=== PATIENT | female | born 1985 | race Caucasian/White ===

== ENCOUNTER 2017-10-19 05:50 | Day surgery (SDC) | payer OTHER ==
--- NOTE | 2017-10-19 07:24 | HP ---
Admitting History and Physical - Primary Care Physician PCP: Juancarlos Kat (Dr Toussaint (psychiatrist)) - Admission Chief Complaint: depression/anxiety History of Present Illness: patient is a 32 y/o obese female with a past medical history of depression and anxiety. Patient presents for ect. This will be her first ECT. She reports being first diagnosed with depression ten years ago after the of her first child. Patient has tried several medications no significant relief. She was referred for ect. patient denies any suicidal or homicidal ideation, visual or auditory hallucinations. History Source: Patient Limitations to Obtaining History: No Limitations - Smoking History Smoking history: Never smoked - Alcohol/Substance Use Hx Alcohol Use: No History of Substance Use: reports: None - Social History Usual Living Arrangement: Yes: With Spouse ADL: Independent History of Recent Travel: No Home Medications - Allergies Allergies/Adverse Reactions: Allergies Allergy/AdvReac Type Severity Reaction Status Date / Time adhesive Allergy Severe Rash Verified 10/19/17 07:21 - Home Medications Home Medications: Ambulatory Orders Brexpiprazole [Rexulti] 1 mg PO DAILY 10/19/17 Bupropion HCl [Bupropion HCl Sr] 150 mg PO HS 10/19/17 Bupropion HCl [Forfivo Xl] 300 mg PO DAILY 10/19/17 Clonazepam [Klonopin] 1 mg PO DAILY 10/19/17 Vortioxetine Hydrobromide [Trintellix] 40 mg PO DAILY 10/19/17 Family Disease History - Family Disease History Family Disease History: Other: Grandparent (mother depression) Review of Systems - Review of Systems Constitutional: reports: No Symptoms Eyes: reports: No Symptoms HENT: reports: No Symptoms Neck: reports: No Symptoms Cardiovascular: reports: No Symptoms Respiratory: reports: No Symptoms Gastrointestinal: reports: No Symptoms Genitourinary: reports: No Symptoms Musculoskeletal: reports: No Symptoms Integumentary: reports: No Symptoms Neurological: reports: No Symptoms Endocrine: reports: No Symptoms Hematology/Lymphatic: reports: No Symptoms Psychiatric: reports: Anxiety, Depression Physical Examination Constitutional: Yes: Well Nourished, No Distress, Calm Eyes: Yes: WNL, Conjunctiva Clear, EOM Intact HENT: Yes: WNL, Atraumatic, Normocephalic Neck: Yes: WNL, Supple, Trachea Midline Cardiovascular: Yes: WNL, Regular Rate and Rhythm, S1, S2 Respiratory: Yes: WNL, Regular, CTA Bilaterally Gastrointestinal: Yes: WNL, Normal Bowel Sounds, Soft ...Rectal Exam: Yes: Deferred Renal/: Yes: WNL Musculoskeletal: Yes: WNL Extremities: Yes: WNL Edema: No Peripheral Pulses WNL: Yes Peripheral Pulses: Left Radial: 4+, Right Radial: 4+, Left Doralis Pedis: 3+, Right Dorsalis Pedis: 3+, Left Femoral: 3+, Right Femoral: 3+ Integumentary: Yes: WNL Neurological: Yes: WNL, Alert, Oriented ...Motor Strength: WNL Psychiatric: Yes: WNL, Alert Labs: reviewe 10/15/17 Imaging - Results EKG: Image Reviewed, Other (nsr no ischemic changes) Assessment/Plan patient is a 32 y/o female that presents for ect, labs and ekg reviewed patient is medically optimized for procedure informed consent, risks/benefits to be obtained by Dr Fitch
[2017-10-19 07:31] VITALS: TEMP 98.2; BMI 36.0
[2017-10-19] MEDS ORDERED: KETAMINE HCL 500 MG/10 ML VIAL ONE (08:02)
[2017-10-19 12:11] VITALS: BP 128/84; PULSE 104
--- NOTE | 2017-10-19 15:49 | EKG ---
Test Reason : Blood Pressure : / mmHG Vent. Rate : 094 BPM Atrial Rate : 094 BPM P-R Int : 154 ms QRS Dur : 080 ms QT Int : 376 ms P-R-T Axes : 025 -10 018 degrees QTc Int : 470 ms NORMAL SINUS RHYTHM NORMAL ECG NO PREVIOUS ECGS AVAILABLE Confirmed by ANYI GOMEZ MD ([id number]) on 10/19/2017 3:49:09 PM Referred By: DR GRECO Confirmed By:ANYI GOMEZ MD
== END 2017-10-19 10:00 | disposition home or self-care (01) ==
LOC: FECT 05:50
PROVIDERS: ATTEND Psychiatry & Neurology Psychiatry
PROC: GZB4ZZZ Other Electroconvulsive Therapy (ICD-10-PCS; principal; 2017-10-19 07:45)
DX: F33.2 Major depressive disorder, recurrent severe without psychotic features (principal)
CPT/HCPCS: 84703; 90870; 93005; 94760

== ENCOUNTER 2017-10-21 05:44 | Day surgery (SDC) | payer OTHER ==
[2017-10-19 12:40] VITALS: BMI 36.0
[2017-10-21] MEDS ORDERED: KETAMINE HCL 500 MG/10 ML VIAL ONE (07:00)
[2017-10-21 07:59] VITALS: TEMP 97.8
[2017-10-21 08:41] VITALS: BP 124/88; PULSE 104
== END 2017-10-21 08:52 | disposition home or self-care (01) ==
LOC: FECT 05:44
PROVIDERS: ATTEND Psychiatry & Neurology Psychiatry
PROC: GZB4ZZZ Other Electroconvulsive Therapy (ICD-10-PCS; principal; 2017-10-21 07:30)
DX: F33.2 Major depressive disorder, recurrent severe without psychotic features (principal)
CPT/HCPCS: 90870; 94760

== ENCOUNTER 2017-10-23 05:49 | Day surgery (SDC) | payer OTHER ==
[2017-10-19 17:09] VITALS: BMI 36.0
[2017-10-23 07:43] VITALS: TEMP 97.8
[2017-10-23] MEDS ORDERED: KETAMINE HCL 500 MG/10 ML VIAL ONE (08:34)
[2017-10-23 09:45] VITALS: BP 132/87; PULSE 92
== END 2017-10-23 09:50 | disposition home or self-care (01) ==
LOC: FECT 05:49
PROVIDERS: ATTEND Psychiatry & Neurology Psychiatry
PROC: GZB4ZZZ Other Electroconvulsive Therapy (ICD-10-PCS; principal; 2017-10-23 08:30)
DX: F33.2 Major depressive disorder, recurrent severe without psychotic features (principal)
CPT/HCPCS: 84703; 90870; 94760

== ENCOUNTER 2017-10-26 05:47 | Day surgery (SDC) | payer OTHER ==
[2017-10-19 17:13] VITALS: BMI 36.0
[2017-10-26] MEDS ORDERED: KETAMINE HCL 500 MG/10 ML VIAL ONE (07:32)
[2017-10-26 08:38] VITALS: TEMP 98.9
[2017-10-26 09:08] VITALS: BP 126/82; PULSE 102
== END 2017-10-26 09:10 | disposition home or self-care (01) ==
LOC: FECT 05:47
PROVIDERS: ATTEND Psychiatry & Neurology Psychiatry
PROC: GZB4ZZZ Other Electroconvulsive Therapy (ICD-10-PCS; principal; 2017-10-26 07:30)
DX: F33.2 Major depressive disorder, recurrent severe without psychotic features (principal)
CPT/HCPCS: 90870; 94760

== ENCOUNTER → 2017-10-28 | Day surgery (SDC) | payer OTHER ==
[2017-10-19 17:15] VITALS: BMI 36.0
[~2017-10-28] MED LIST: ACETAMINOPHEN 325 MG TABLET (FP) PO PRN; KETAMINE HCL 500 MG/10 ML VIAL ONE
[2017-10-28 09:20] VITALS: TEMP 98.5
[2017-10-28 09:40] VITALS: BP 131/81; PULSE 87
== END | disposition home or self-care (01) ==
LOC: FECT 05:42
PROVIDERS: ATTEND Psychiatry & Neurology Psychiatry
PROC: GZB4ZZZ Other Electroconvulsive Therapy (ICD-10-PCS; principal; 2017-10-28 07:30)
DX: F33.2 Major depressive disorder, recurrent severe without psychotic features (principal)
CPT/HCPCS: 84703; 90870; 94760

== ENCOUNTER 2017-11-02 05:43 | Day surgery (SDC) | payer OTHER ==
[2017-11-02 06:45] VITALS: TEMP 98.1; BMI 35.0
[2017-11-02] MEDS ORDERED: KETAMINE HCL 500 MG/10 ML VIAL ONE (07:10)
[2017-11-02 09:15] VITALS: BP 136/91; PULSE 98
== END 2017-11-02 09:00 | disposition home or self-care (01) ==
LOC: FECT 05:43
PROVIDERS: ATTEND Psychiatry & Neurology Psychiatry
PROC: GZB4ZZZ Other Electroconvulsive Therapy (ICD-10-PCS; principal; 2017-11-02 07:15)
DX: F33.2 Major depressive disorder, recurrent severe without psychotic features (principal)
CPT/HCPCS: 84703; 90870; 94760

== ENCOUNTER 2017-11-04 05:40 | Day surgery (SDC) | payer OTHER ==
[2017-11-04 06:24] VITALS: BMI 35.0
[2017-11-04] MEDS ORDERED: KETAMINE HCL 500 MG/10 ML VIAL ONE (07:08)
[2017-11-04] MEDS ORDERED: PROMETHAZINE HCL 25 MG/1 ML VIAL IVPUSH PRN (08:00)
[2017-11-04] MEDS ORDERED: ACETAMINOPHEN 325 MG TABLET (FP) PO PRN (08:00)
[2017-11-04] MEDS ORDERED: ONDANSETRON 4 MG/2 ML VIAL IVPUSH PRN (08:00)
[2017-11-04 08:15] VITALS: TEMP 98.2
[2017-11-04 08:45] VITALS: BP 126/72; PULSE 98
== END 2017-11-04 09:10 | disposition home or self-care (01) ==
LOC: FECT 05:40
PROVIDERS: ATTEND Psychiatry & Neurology Psychiatry
PROC: GZB4ZZZ Other Electroconvulsive Therapy (ICD-10-PCS; principal; 2017-11-04 07:00)
DX: F33.2 Major depressive disorder, recurrent severe without psychotic features (principal)
CPT/HCPCS: 90870; 94760

== ENCOUNTER 2017-11-06 05:40 | Day surgery (SDC) | payer OTHER ==
[2017-11-02 09:29] VITALS: BMI 35.0
[2017-11-06] MEDS ORDERED: KETAMINE HCL 500 MG/10 ML VIAL ONE (07:29)
[2017-11-06 08:29] VITALS: TEMP 97.8
[2017-11-06 08:53] VITALS: BP 130/84; PULSE 96
== END 2017-11-06 08:45 | disposition home or self-care (01) ==
LOC: FECT 05:40
PROVIDERS: ATTEND Psychiatry & Neurology Psychiatry
PROC: GZB4ZZZ Other Electroconvulsive Therapy (ICD-10-PCS; principal; 2017-11-06 07:00)
DX: F33.2 Major depressive disorder, recurrent severe without psychotic features (principal)
CPT/HCPCS: 84703; 90870; 94760

== ENCOUNTER 2017-11-09 05:43 | Day surgery (SDC) | payer OTHER ==
[2017-11-02 12:26] VITALS: BMI 35.0
[2017-11-09] MEDS ORDERED: KETAMINE HCL 500 MG/10 ML VIAL ONE (07:12)
[2017-11-09] MEDS ORDERED: oxyCODONE HCL 5 MG TABLET PO PRN (08:03)
[2017-11-09] MEDS ORDERED: ONDANSETRON 4 MG/2 ML VIAL IVPUSH PRN (08:03)
[2017-11-09] MEDS ORDERED: LACTATED RINGERS SOLUTION 1,000 ML IV SCH (08:15)
[2017-11-09 09:19] VITALS: BP 130/86; PULSE 92; TEMP 98.6
== END 2017-11-09 09:00 | disposition home or self-care (01) ==
LOC: FECT 05:43
PROVIDERS: ATTEND Psychiatry & Neurology Psychiatry
PROC: GZB4ZZZ Other Electroconvulsive Therapy (ICD-10-PCS; principal; 2017-11-09 07:15)
DX: F33.2 Major depressive disorder, recurrent severe without psychotic features (principal)
CPT/HCPCS: 90870; 94760

== ENCOUNTER 2017-11-11 05:38 | Day surgery (SDC) | payer OTHER ==
[2017-11-11 06:16] VITALS: BMI 35.0
[2017-11-11] MEDS ORDERED: KETAMINE HCL 500 MG/10 ML VIAL ONE (06:59)
[2017-11-11] MEDS ORDERED: oxyCODONE HCL 5 MG TABLET PO PRN (07:22)
[2017-11-11 08:11] VITALS: PULSE 92; TEMP 98.8
[2017-11-11 08:25] VITALS: BP 118/84
== END 2017-11-11 08:30 | disposition home or self-care (01) ==
LOC: FECT 05:38
PROVIDERS: ATTEND Psychiatry & Neurology Psychiatry
PROC: GZB4ZZZ Other Electroconvulsive Therapy (ICD-10-PCS; principal; 2017-11-11 07:00)
DX: F33.2 Major depressive disorder, recurrent severe without psychotic features (principal)
CPT/HCPCS: 84703; 90870; 94760

== ENCOUNTER 2017-11-13 05:39 | Day surgery (SDC) | payer OTHER ==
[2017-11-10 10:18] VITALS: BMI 35.0
[2017-11-13] MEDS ORDERED: KETAMINE HCL 500 MG/10 ML VIAL ONE (07:58)
[2017-11-13 09:13] VITALS: TEMP 99.1
[2017-11-13 10:46] VITALS: BP 134/88; PULSE 88
== END 2017-11-13 09:55 | disposition home or self-care (01) ==
LOC: FECT 05:39
PROVIDERS: ATTEND Psychiatry & Neurology Psychiatry
PROC: GZB4ZZZ Other Electroconvulsive Therapy (ICD-10-PCS; principal; 2017-11-13 07:00)
DX: F33.2 Major depressive disorder, recurrent severe without psychotic features (principal)
CPT/HCPCS: 90870; 94760

== ENCOUNTER 2017-11-16 05:47 | Day surgery (SDC) | payer OTHER ==
[2017-11-13 10:44] VITALS: BMI 35.0
[2017-11-16] MEDS ORDERED: KETAMINE HCL 500 MG/10 ML VIAL ONE (06:45)
[2017-11-16 08:08] VITALS: TEMP 98.2
[2017-11-16 09:12] VITALS: BP 116/72; PULSE 96
== END 2017-11-16 08:50 | disposition home or self-care (01) ==
LOC: FECT 05:47
PROVIDERS: ATTEND Psychiatry & Neurology Psychiatry
PROC: GZB4ZZZ Other Electroconvulsive Therapy (ICD-10-PCS; principal; 2017-11-16 07:30)
DX: F33.2 Major depressive disorder, recurrent severe without psychotic features (principal)
CPT/HCPCS: 84703; 90870; 94760

== ENCOUNTER 2017-11-18 05:42 | Day surgery (SDC) | payer OTHER ==
[2017-11-13 10:46] VITALS: BMI 35.0
[2017-11-18] MEDS ORDERED: KETAMINE HCL 500 MG/10 ML VIAL ONE (07:56)
[2017-11-18 09:15] VITALS: TEMP 98.2
[2017-11-18 10:04] VITALS: BP 122/82; PULSE 94
== END 2017-11-18 10:07 | disposition home or self-care (01) ==
LOC: FECT 05:42
PROVIDERS: ATTEND Psychiatry & Neurology Psychiatry
PROC: GZB4ZZZ Other Electroconvulsive Therapy (ICD-10-PCS; principal; 2017-11-18 07:30)
DX: F33.2 Major depressive disorder, recurrent severe without psychotic features (principal)
CPT/HCPCS: 90870; 94760

== ENCOUNTER 2017-11-20 05:41 | Day surgery (SDC) | payer OTHER ==
[2017-11-13 10:49] VITALS: BMI 35.0
--- NOTE | 2017-11-20 06:58 | HP ---
Admitting History and Physical - Admission History of Present Illness: Patient is a 32 y/o female with a past medical history of depression and anxiety. Patient presents for ect, her last ect was 11/18/17. Patient reports her depressive feeling have been much improved since starting ect. Patient denies any recent illnesses or hosptializations. She denies any changes in medications. Patient denies any suicidal or homicidal ideation, visual or auditory hallucinations. History Source: Patient Limitations to Obtaining History: No Limitations - Past Medical History ...LMP: 10/05/17 - Smoking History Smoking history: Never smoked Have you smoked in the past 12 months: No - Alcohol/Substance Use Hx Alcohol Use: No History of Substance Use: reports: None - Social History Usual Living Arrangement: Yes: With Spouse ADL: Independent History of Recent Travel: No Home Medications - Allergies Allergies/Adverse Reactions: Allergies Allergy/AdvReac Type Severity Reaction Status Date / Time adhesive Allergy Severe Rash Verified 11/03/17 17:08 - Home Medications Home Medications: Ambulatory Orders Brexpiprazole [Rexulti] 1 mg PO DAILY 10/19/17 Bupropion HCl [Bupropion HCl Sr] 150 mg PO HS 10/19/17 Bupropion HCl [Forfivo Xl] 300 mg PO DAILY 10/19/17 Clonazepam [Klonopin] 1 mg PO DAILY 10/19/17 Vortioxetine Hydrobromide [Trintellix] 40 mg PO DAILY 10/19/17 Family Disease History - Family Disease History Family Disease History: Other: Grandparent Review of Systems - Review of Systems Constitutional: reports: No Symptoms Eyes: reports: No Symptoms HENT: reports: No Symptoms Neck: reports: No Symptoms Cardiovascular: reports: No Symptoms Respiratory: reports: No Symptoms Gastrointestinal: reports: No Symptoms Genitourinary: reports: No Symptoms Musculoskeletal: reports: No Symptoms Integumentary: reports: No Symptoms Neurological: reports: No Symptoms Endocrine: reports: No Symptoms Hematology/Lymphatic: reports: No Symptoms Psychiatric: reports: No Symptoms Physical Examination Vital Signs: Vital Signs Temperature 97.8 F 11/20/17 06:21 Pulse Rate 92 H 11/20/17 06:21 Respiratory Rate 18 11/20/17 06:21 Blood Pressure 123/82 11/20/17 06:21 O2 Sat by Pulse Oximetry (%) 95 11/20/17 06:21 Constitutional: Yes: Well Nourished, No Distress, Calm Eyes: Yes: WNL, Conjunctiva Clear, EOM Intact HENT: Yes: WNL, Atraumatic, Normocephalic Neck: Yes: WNL, Supple, Trachea Midline Cardiovascular: Yes: WNL, Regular Rate and Rhythm, S1, S2 Respiratory: Yes: WNL, Regular, CTA Bilaterally Gastrointestinal: Yes: WNL, Normal Bowel Sounds, Soft ...Rectal Exam: Yes: Deferred Renal/: Yes: WNL Breast(s): Yes: WNL Musculoskeletal: Yes: WNL Extremities: Yes: WNL Edema: No Peripheral Pulses WNL: Yes Peripheral Pulses: Left Radial: 4+, Right Radial: 4+, Left Doralis Pedis: 3+, Right Dorsalis Pedis: 3+, Left Femoral: 3+, Right Femoral: 3+ Integumentary: Yes: WNL Neurological: Yes: WNL, Alert, Oriented ...Motor Strength: WNL Psychiatric: Yes: WNL, Alert, Oriented Labs: reviewed 10/13/17 Imaging - Results EKG: Image Reviewed, Other (nsr no ischemic changes) Assessment/Plan patient is a 32 y/o female that presents for ect, labs and ekg reviewed patient is medically optimized for procedure informed consent, risks/benefits to be obtained by Dr Fitch
[2017-11-20] MEDS ORDERED: KETAMINE HCL 500 MG/10 ML VIAL ONE (08:06)
[2017-11-20 09:28] VITALS: BP 125/74; PULSE 92; TEMP 98
== END 2017-11-20 09:30 | disposition home or self-care (01) ==
LOC: FECT 05:41
PROVIDERS: ATTEND Psychiatry & Neurology Psychiatry
PROC: GZB4ZZZ Other Electroconvulsive Therapy (ICD-10-PCS; principal; 2017-11-20 07:15)
DX: F33.2 Major depressive disorder, recurrent severe without psychotic features (principal)
CPT/HCPCS: 84703

== ENCOUNTER 2017-11-23 05:50 | Day surgery (SDC) | payer OTHER ==
[2017-11-18 15:05] VITALS: BMI 35.0
[2017-11-23 06:27] VITALS: TEMP 98.1
[2017-11-23] MEDS ORDERED: KETAMINE HCL 500 MG/10 ML VIAL ONE (07:00)
[2017-11-23 08:20] VITALS: BP 120/76; PULSE 84
[2017-11-23] MEDS ORDERED: oxyCODONE HCL 5 MG TABLET PO PRN (09:52)
[2017-11-23] MEDS ORDERED: ONDANSETRON 4 MG/2 ML VIAL IVPUSH PRN (09:52)
[2017-11-23] MEDS ORDERED: LACTATED RINGERS SOLUTION 1,000 ML IV SCH (10:00)
== END 2017-11-23 08:30 | disposition home or self-care (01) ==
LOC: FECT 05:50
PROVIDERS: ATTEND Psychiatry & Neurology Psychiatry
PROC: GZB4ZZZ Other Electroconvulsive Therapy (ICD-10-PCS; principal; 2017-11-23 07:45)
DX: F33.2 Major depressive disorder, recurrent severe without psychotic features (principal)
CPT/HCPCS: 90870; 94760

== ENCOUNTER 2017-11-25 05:41 | Day surgery (SDC) | payer OTHER ==
[2017-11-18 15:08] VITALS: BMI 35.0
[2017-11-25] MEDS ORDERED: KETAMINE HCL 500 MG/10 ML VIAL ONE (07:23)
[2017-11-25 08:32] VITALS: PULSE 82; TEMP 98.6
[2017-11-25 09:04] VITALS: BP 117/72
== END 2017-11-25 09:08 | disposition home or self-care (01) ==
LOC: FECT 05:41
PROVIDERS: ATTEND Psychiatry & Neurology Psychiatry
PROC: GZB4ZZZ Other Electroconvulsive Therapy (ICD-10-PCS; principal; 2017-11-25 07:00)
DX: F33.2 Major depressive disorder, recurrent severe without psychotic features (principal)
CPT/HCPCS: 84703

== ENCOUNTER 2017-11-30 05:40 | Day surgery (SDC) | payer OTHER ==
[2017-11-27 15:57] VITALS: BMI 35.0
[2017-11-30] MEDS ORDERED: KETAMINE HCL 500 MG/10 ML VIAL ONE (06:51)
[2017-11-30 07:58] VITALS: TEMP 98.2
[2017-11-30 09:01] VITALS: PULSE 84
[2017-11-30 09:08] VITALS: BP 112/68
== END 2017-11-30 09:09 | disposition home or self-care (01) ==
LOC: FECT 05:40
PROVIDERS: ATTEND Psychiatry & Neurology Psychiatry
PROC: GZB4ZZZ Other Electroconvulsive Therapy (ICD-10-PCS; principal; 2017-11-30 07:15)
DX: F33.2 Major depressive disorder, recurrent severe without psychotic features (principal)
CPT/HCPCS: 84703; 90870; 94760

== ENCOUNTER 2017-12-02 05:50 | Day surgery (SDC) | payer OTHER ==
[2017-11-27 16:01] VITALS: BMI 35.0
[2017-12-02] MEDS ORDERED: KETAMINE HCL 500 MG/10 ML VIAL ONE (07:04)
[2017-12-02 08:22] VITALS: TEMP 98
[2017-12-02 08:23] VITALS: BP 114/80; PULSE 87
== END 2017-12-02 08:26 | disposition home or self-care (01) ==
LOC: FECT 05:50
PROVIDERS: ATTEND Psychiatry & Neurology Psychiatry
PROC: GZB4ZZZ Other Electroconvulsive Therapy (ICD-10-PCS; principal; 2017-12-02 07:15)
DX: F33.2 Major depressive disorder, recurrent severe without psychotic features (principal)
CPT/HCPCS: 90870; 94760

== ENCOUNTER 2017-12-04 05:48 | Day surgery (SDC) | payer OTHER ==
[2017-12-04 06:17] VITALS: BMI 34.4
[2017-12-04] MEDS ORDERED: KETAMINE HCL 500 MG/10 ML VIAL ONE (07:09)
[2017-12-04 08:05] VITALS: TEMP 98.8
[2017-12-04] MEDS ORDERED: ONDANSETRON 4 MG/2 ML VIAL IVPUSH PRN (08:17)
[2017-12-04] MEDS ORDERED: PROMETHAZINE HCL 25 MG/1 ML VIAL IVPUSH PRN (08:17)
[2017-12-04] MEDS ORDERED: ACETAMINOPHEN 500 MG TABLET (FP) PO PRN (08:17)
[2017-12-04 08:29] VITALS: BP 124/82; PULSE 84
== END 2017-12-04 08:35 | disposition home or self-care (01) ==
LOC: FECT 05:48
PROVIDERS: ATTEND Psychiatry & Neurology Psychiatry
PROC: GZB4ZZZ Other Electroconvulsive Therapy (ICD-10-PCS; principal; 2017-12-04 08:30)
DX: F33.2 Major depressive disorder, recurrent severe without psychotic features (principal)
CPT/HCPCS: 84703; 90870; 94760

== ENCOUNTER 2017-12-07 05:46 | Day surgery (SDC) | payer OTHER ==
[2017-12-04 11:18] VITALS: BMI 34.4
[2017-12-07] MEDS ORDERED: KETAMINE HCL 500 MG/10 ML VIAL ONE (07:23)
[2017-12-07 09:06] VITALS: TEMP 99.2
[2017-12-07 09:07] VITALS: BP 120/84; PULSE 88
== END 2017-12-07 09:00 | disposition home or self-care (01) ==
LOC: FECT 05:46
PROVIDERS: ATTEND Psychiatry & Neurology Psychiatry
PROC: GZB4ZZZ Other Electroconvulsive Therapy (ICD-10-PCS; principal; 2017-12-07 08:00)
DX: F33.2 Major depressive disorder, recurrent severe without psychotic features (principal)
CPT/HCPCS: 90870; 94760

== ENCOUNTER 2017-12-11 05:36 | Day surgery (SDC) | payer OTHER ==
[2017-12-04 11:23] VITALS: BMI 34.4
[2017-12-11] MEDS ORDERED: KETAMINE HCL 500 MG/10 ML VIAL ONE (07:32)
[2017-12-11 09:07] VITALS: TEMP 97.8
[2017-12-11 09:10] VITALS: BP 130/86; PULSE 88
[2017-12-11] MEDS ORDERED: ONDANSETRON 4 MG/2 ML VIAL IVPUSH PRN (11:58)
[2017-12-11] MEDS ORDERED: LACTATED RINGERS SOLUTION 1,000 ML IV SCH (12:00)
== END 2017-12-11 09:00 | disposition home or self-care (01) ==
LOC: FECT 05:36
PROVIDERS: ATTEND Psychiatry & Neurology Psychiatry
PROC: GZB4ZZZ Other Electroconvulsive Therapy (ICD-10-PCS; principal; 2017-12-11 07:15)
DX: F33.2 Major depressive disorder, recurrent severe without psychotic features (principal)
CPT/HCPCS: 84703; 90870; 94760

== ENCOUNTER 2017-12-29 05:43 | Day surgery (SDC) | payer OTHER ==
[2017-12-29 08:11] VITALS: BMI 32.8
[2017-12-29] MEDS ORDERED: KETAMINE HCL 500 MG/10 ML VIAL ONE (08:35)
[2017-12-29] MEDS ORDERED: ACETAMINOPHEN 325 MG TABLET (FP) PO PRN (09:06)
[2017-12-29] MEDS ORDERED: PROMETHAZINE HCL 25 MG/1 ML VIAL IVPUSH PRN (09:06)
[2017-12-29 09:49] VITALS: BP 134/88; PULSE 95; TEMP 98.5
== END 2017-12-29 09:45 | disposition home or self-care (01) ==
LOC: FECT 05:43
PROVIDERS: ATTEND Psychiatry & Neurology Psychiatry
PROC: GZB4ZZZ Other Electroconvulsive Therapy (ICD-10-PCS; principal; 2017-12-29 07:15)
DX: F33.2 Major depressive disorder, recurrent severe without psychotic features (principal)
CPT/HCPCS: 84703; 90870; 94760

== ENCOUNTER 2018-01-06 05:40 | Day surgery (SDC) | payer OTHER ==
[2018-01-06 06:24] VITALS: BMI 32.2
[2018-01-06] MEDS ORDERED: KETAMINE HCL 500 MG/10 ML VIAL ONE (06:59)
[2018-01-06 07:58] VITALS: TEMP 98.2
[2018-01-06 08:21] VITALS: BP 109/76; PULSE 81
== END 2018-01-06 08:34 | disposition home or self-care (01) ==
LOC: FECT 05:40
PROVIDERS: ATTEND Psychiatry & Neurology Psychiatry
PROC: GZB4ZZZ Other Electroconvulsive Therapy (ICD-10-PCS; principal; 2018-01-06 07:15)
DX: F33.2 Major depressive disorder, recurrent severe without psychotic features (principal)
CPT/HCPCS: 84703; 90870; 94760

== ENCOUNTER 2018-01-12 05:39 | Day surgery (SDC) | payer OTHER ==
[2018-01-12 06:34] VITALS: BMI 31.9
[2018-01-12] MEDS ORDERED: KETAMINE HCL 500 MG/10 ML VIAL ONE (07:08)
[2018-01-12 08:48] VITALS: TEMP 98.1
[2018-01-12 08:56] VITALS: BP 115/78; PULSE 88
== END 2018-01-12 08:40 | disposition home or self-care (01) ==
LOC: FECT 05:39
PROVIDERS: ATTEND Psychiatry & Neurology Psychiatry
PROC: GZB4ZZZ Other Electroconvulsive Therapy (ICD-10-PCS; principal; 2018-01-12 07:00)
DX: F33.2 Major depressive disorder, recurrent severe without psychotic features (principal)
CPT/HCPCS: 84703; 90870; 94760

== ENCOUNTER 2018-01-18 05:47 | Day surgery (SDC) | payer OTHER ==
[2018-01-18 06:17] VITALS: BMI 31.9
[2018-01-18] MEDS ORDERED: PROPOFOL 20 ML ONE (07:00)
[2018-01-18] MEDS ORDERED: SUCCINYLCHOLINE CHLORIDE 200 MG/10 ML VIAL ONE (07:00)
[2018-01-18] MEDS ORDERED: KETAMINE HCL 500 MG/10 ML VIAL ONE (07:13)
[2018-01-18 08:17] VITALS: TEMP 98.9
[2018-01-18 08:27] VITALS: BP 132/75; PULSE 91
== END 2018-01-18 08:30 | disposition home or self-care (01) ==
LOC: FECT 05:47
PROVIDERS: ATTEND Psychiatry & Neurology Psychiatry
PROC: GZB0ZZZ Electroconvulsive Therapy, Unilateral-Single Seizure (ICD-10-PCS; principal; 2018-01-18 07:45)
DX: F33.2 Major depressive disorder, recurrent severe without psychotic features (principal)
CPT/HCPCS: 84703; 90870; 94760

== ENCOUNTER 2018-02-02 06:31 | Day surgery (SDC) | payer OTHER ==
[2018-02-02 06:56] VITALS: BMI 32.1
--- NOTE | 2018-02-02 07:14 | HP ---
Admitting History and Physical - Admission History of Present Illness: Patient is a 32 y/o female with a past medical history of of depression and anxiety. Patient presents for ect, her last ect was 01/18/18. Patient reports feeling a significant improvement in depressive symptoms since starting ect. She denies any illnesses or hospitalizations. patient reports compliance with prescribed medications. She denies any suicidal or homicidal ideation, visual or auditory hallucinations. History Source: Patient Limitations to Obtaining History: No Limitations - Past Medical History ...LMP: 01/05/18 ...: No - Smoking History Smoking history: Never smoked Have you smoked in the past 12 months: No - Alcohol/Substance Use Hx Alcohol Use: No History of Substance Use: reports: None - Social History Usual Living Arrangement: Yes: With Spouse ADL: Independent History of Recent Travel: No Home Medications - Allergies Allergies/Adverse Reactions: Allergies Allergy/AdvReac Type Severity Reaction Status Date / Time adhesive Allergy Severe Rash Verified 11/23/17 06:35 - Home Medications Home Medications: Ambulatory Orders Bupropion HCl [Bupropion HCl Sr] 150 mg PO HS 10/19/17 Bupropion HCl [Forfivo Xl] 300 mg PO DAILY 10/19/17 Clonazepam [Klonopin] 1 mg PO HS 10/19/17 Vortioxetine Hydrobromide [Trintellix] 40 mg PO HS 10/19/17 Family Disease History - Family Disease History Family Disease History: Other: Grandparent Review of Systems - Review of Systems Constitutional: reports: No Symptoms Eyes: reports: No Symptoms HENT: reports: No Symptoms Neck: reports: No Symptoms Cardiovascular: reports: No Symptoms Respiratory: reports: No Symptoms Gastrointestinal: reports: No Symptoms Genitourinary: reports: No Symptoms Musculoskeletal: reports: No Symptoms Integumentary: reports: No Symptoms Neurological: reports: No Symptoms Endocrine: reports: No Symptoms Hematology/Lymphatic: reports: No Symptoms Psychiatric: reports: No Symptoms Physical Examination Vital Signs: Vital Signs Temperature 97.9 F 02/02/18 06:44 Pulse Rate 82 02/02/18 06:44 Respiratory Rate 18 02/02/18 06:44 Blood Pressure 142/80 02/02/18 06:44 O2 Sat by Pulse Oximetry (%) 99 02/02/18 06:44 Constitutional: Yes: Well Nourished, No Distress, Calm, Obese Eyes: Yes: WNL, Conjunctiva Clear, EOM Intact HENT: Yes: WNL, Atraumatic, Normocephalic Neck: Yes: WNL, Supple, Trachea Midline Cardiovascular: Yes: WNL, Regular Rate and Rhythm, S1, S2 Respiratory: Yes: WNL, Regular, CTA Bilaterally Gastrointestinal: Yes: WNL, Normal Bowel Sounds, Soft ...Rectal Exam: Yes: Deferred Renal/: Yes: WNL Musculoskeletal: Yes: WNL Extremities: Yes: WNL Edema: No Peripheral Pulses WNL: Yes Peripheral Pulses: Left Radial: 4+, Right Radial: 4+, Left Doralis Pedis: 3+, Right Dorsalis Pedis: 3+, Left Femoral: 3+, Right Femoral: 3+ Integumentary: Yes: WNL Neurological: Yes: WNL, Alert, Oriented ...Motor Strength: WNL Psychiatric: Yes: WNL, Alert, Oriented Labs: reviewed 12/20 Imaging - Results EKG: Image Reviewed, Other (reviwed 10/19) Assessment/Plan patient is a 32 y/o female that presents for ect, labs and ekg reviewed patient is medically optimized for procedure informed consent risks/benefits to be obtained by Dr Fitch
[2018-02-02] MEDS ORDERED: KETAMINE HCL 500 MG/10 ML VIAL ONE (07:56)
[2018-02-02 09:27] VITALS: TEMP 98.5
[2018-02-02 09:28] VITALS: BP 125/75; PULSE 89
== END 2018-02-02 09:10 | disposition home or self-care (01) ==
LOC: FECT 06:31
PROVIDERS: ATTEND Psychiatry & Neurology Psychiatry
PROC: GZB4ZZZ Other Electroconvulsive Therapy (ICD-10-PCS; principal; 2018-02-02 07:00)
DX: F33.2 Major depressive disorder, recurrent severe without psychotic features (principal)
CPT/HCPCS: 84703; 90870; 94760

== ENCOUNTER 2018-02-11 06:02 | Day surgery (SDC) | payer OTHER ==
[2018-02-11 06:30] VITALS: TEMP 98.9; BMI 32.1
[2018-02-11] MEDS ORDERED: KETAMINE HCL 500 MG/10 ML VIAL ONE (07:01)
[2018-02-11 08:22] VITALS: BP 129/79; PULSE 84
== END 2018-02-11 08:20 | disposition home or self-care (01) ==
LOC: FECT 06:02
PROVIDERS: ATTEND Psychiatry & Neurology Psychiatry
PROC: GZB4ZZZ Other Electroconvulsive Therapy (ICD-10-PCS; principal; 2018-02-11 07:45)
DX: F33.2 Major depressive disorder, recurrent severe without psychotic features (principal)
CPT/HCPCS: 84703; 90870; 94760

== ENCOUNTER 2018-02-16 05:42 | Day surgery (SDC) | payer OTHER ==
[2018-02-12 16:16] VITALS: BMI 31.9
[2018-02-16] MEDS ORDERED: KETAMINE HCL 500 MG/10 ML VIAL ONE (07:40)
[2018-02-16 10:31] VITALS: TEMP 98.7
[2018-02-16 10:47] VITALS: BP 124/80; PULSE 92
== END 2018-02-16 10:05 | disposition home or self-care (01) ==
LOC: FECT 05:42
PROVIDERS: ATTEND Psychiatry & Neurology Psychiatry
PROC: GZB4ZZZ Other Electroconvulsive Therapy (ICD-10-PCS; principal; 2018-02-16 07:30)
DX: F33.2 Major depressive disorder, recurrent severe without psychotic features (principal)
CPT/HCPCS: 84703; 90870; 94760

== ENCOUNTER 2018-02-23 05:47 | Day surgery (SDC) | payer OTHER ==
[2018-02-23 06:20] VITALS: BMI 31.9
[2018-02-23] MEDS ORDERED: KETAMINE HCL 500 MG/10 ML VIAL ONE (07:06)
[2018-02-23] MEDS ORDERED: ACETAMINOPHEN 325 MG TABLET (FP) PO PRN (07:19)
[2018-02-23] MEDS ORDERED: ONDANSETRON 4 MG/2 ML VIAL IVPUSH PRN (07:19)
[2018-02-23 08:33] VITALS: TEMP 98.4
[2018-02-23 08:34] VITALS: BP 111/76; PULSE 98
== END 2018-02-23 08:41 | disposition home or self-care (01) ==
LOC: FECT 05:47
PROVIDERS: ATTEND Psychiatry & Neurology Psychiatry
PROC: GZB4ZZZ Other Electroconvulsive Therapy (ICD-10-PCS; principal; 2018-02-23 07:45)
DX: F33.2 Major depressive disorder, recurrent severe without psychotic features (principal)
CPT/HCPCS: 84703; 90870; 94760

== ENCOUNTER 2018-03-02 05:44 | Day surgery (SDC) | payer OTHER ==
[2018-03-02 06:16] VITALS: BMI 31.4
[2018-03-02] MEDS ORDERED: KETAMINE HCL 500 MG/10 ML VIAL ONE (07:02)
[2018-03-02 07:57] VITALS: TEMP 99.3
[2018-03-02 09:40] VITALS: BP 114/78; PULSE 94
== END 2018-03-02 08:30 | disposition home or self-care (01) ==
LOC: FECT 05:44
PROVIDERS: ATTEND Psychiatry & Neurology Psychiatry
PROC: GZB4ZZZ Other Electroconvulsive Therapy (ICD-10-PCS; principal; 2018-03-02 07:45)
DX: F33.2 Major depressive disorder, recurrent severe without psychotic features (principal)
CPT/HCPCS: 84703; 90870; 94760

== ENCOUNTER 2018-03-29 05:37 | Day surgery (SDC) | payer OTHER ==
[2018-03-25 16:05] VITALS: BMI 31.9
--- NOTE | 2018-03-29 07:26 | HP ---
Admitting History and Physical - Admission History of Present Illness: Patient is a 32 y/o female with a past medical history of depression and anxiety. Patient presents for ect, her last ect was 03/03/18. Patient reports feeling much improved since starting ect. she denies any recent illnesses or hospitalizations. She reports compliance with prescribed medications. She denies any suicidal or homicidal ideation, visual or auditory hallucinations. History Source: Patient Limitations to Obtaining History: No Limitations - Past Medical History ...LMP: 02/02/18 - Smoking History Smoking history: Never smoked Have you smoked in the past 12 months: No - Alcohol/Substance Use Hx Alcohol Use: No History of Substance Use: reports: None - Social History Usual Living Arrangement: Yes: With Spouse ADL: Independent History of Recent Travel: No Home Medications - Allergies Allergies/Adverse Reactions: Allergies Allergy/AdvReac Type Severity Reaction Status Date / Time adhesive Allergy Severe Rash Verified 03/25/18 12:25 No Known Drug Allergies Allergy Verified 03/25/18 12:25 - Home Medications Home Medications: Ambulatory Orders Bupropion HCl [Bupropion HCl Sr] 450 mg PO DAILY 10/19/17 Clonazepam [Klonopin] 1 mg PO HS 10/19/17 Vortioxetine Hydrobromide [Trintellix] 40 mg PO HS 10/19/17 Auberry Carbonate [Eskalith -] 450 mg PO DAILY 02/23/18 Family Disease History - Family Disease History Family Disease History: Other: Grandparent Review of Systems - Review of Systems Constitutional: reports: No Symptoms Eyes: reports: No Symptoms HENT: reports: No Symptoms Neck: reports: No Symptoms Cardiovascular: reports: No Symptoms Respiratory: reports: No Symptoms Gastrointestinal: reports: No Symptoms Genitourinary: reports: No Symptoms Musculoskeletal: reports: No Symptoms Integumentary: reports: No Symptoms Neurological: reports: No Symptoms Endocrine: reports: No Symptoms Hematology/Lymphatic: reports: No Symptoms Psychiatric: reports: No Symptoms Physical Examination Vital Signs: Vital Signs Temperature 98.1 F 03/29/18 07:10 Pulse Rate 94 H 03/29/18 07:10 Respiratory Rate 18 03/29/18 07:10 Blood Pressure 126/86 03/29/18 07:10 O2 Sat by Pulse Oximetry (%) 100 03/29/18 07:10 Constitutional: Yes: Well Nourished, No Distress, Calm, Obese Eyes: Yes: WNL, Conjunctiva Clear, EOM Intact HENT: Yes: WNL, Atraumatic, Normocephalic Neck: Yes: WNL, Supple, Trachea Midline Cardiovascular: Yes: WNL, Regular Rate and Rhythm, S1, S2 Respiratory: Yes: WNL, Regular, CTA Bilaterally Gastrointestinal: Yes: WNL, Normal Bowel Sounds, Soft ...Rectal Exam: Yes: Deferred Renal/: Yes: WNL Musculoskeletal: Yes: WNL Extremities: Yes: WNL Edema: No Peripheral Pulses WNL: Yes Peripheral Pulses: Left Radial: 4+, Right Radial: 4+, Left Doralis Pedis: 3+, Right Dorsalis Pedis: 3+, Left Femoral: 3+, Right Femoral: 3+ Integumentary: Yes: WNL Neurological: Yes: WNL, Alert, Oriented ...Motor Strength: WNL Psychiatric: Yes: WNL, Alert, Oriented Labs: reviewed 10/22 Imaging - Results EKG: Image Reviewed (nsr), Other Assessment/Plan patient is a 32 y/o female that presents for ect, labs and ekg reviewed patient is medically optimized for procedure informed consent, risks/benefits to be obtained by Dr Fitch
[2018-03-29] MEDS ORDERED: KETAMINE HCL 500 MG/10 ML VIAL ONE (07:56)
[2018-03-29 08:57] VITALS: TEMP 98.8
[2018-03-29 09:16] VITALS: BP 128/78; PULSE 102
== END 2018-03-29 09:18 | disposition home or self-care (01) ==
LOC: FECT 05:37
PROVIDERS: ATTEND Psychiatry & Neurology Psychiatry
PROC: GZB4ZZZ Other Electroconvulsive Therapy (ICD-10-PCS; principal; 2018-03-29 07:00)
DX: F33.2 Major depressive disorder, recurrent severe without psychotic features (principal)
CPT/HCPCS: 84703; 90870; 94760